=== PATIENT | male | born 1935 | race Caucasian/White ===

== ENCOUNTER 2022-05-23 13:13 | Outpatient (CLI) | payer MEDICARE, SELFPAY ==
[2022-05-23 13:21] VITALS: BP 172/67; PULSE 64; RESP 16; O2SAT 97
[2022-05-23] MEDS: TETRACAINE 0.5% OPHTH 1 DROP EYE-LEFT ×3 (13:24→13:52)
[2022-05-23] MEDS: BRIMONIDINE TARTRATE 0.2% OPHTH 1 DROP EYE-LEFT ×2 (13:26→14:01)
--- NOTE | 2022-05-23 15:11 | P.PCN_ITS ---
Procedure Note Date Seen: 05/23/22 Will [facility] bill your pro fee for this procedure?: Yes Procedure Description: SURGEON: Margo Little MD PREOPERATIVE DIAGNOSIS: Posterior capsular opacity, left eye POSTOPERATIVE DIAGNOSIS: Posterior capsular opacity, left eye PROCEDURE: YAG laser capsulotomy, left eye ANESTHESIA: Topical. ESTIMATED BLOOD LOSS: None PATHOLOGY SPECIMEN: None COMPLICATIONS: None INDICATIONS: See consult note for details. The risks, benefits and alternatives of the procedure were explained to the patient, who elected to proceed and signed informed consent to do so. PROCEDURE: The patient was brought to the pre-holding area where the left eye was identified as the operative eye. I placed my initials above this eye. The patient received 2 sets of 1 drop of 0.5% tetracaine and 1 drop of 1% tropicamide. They also received 1 drop of 0.2% brimonidine. They received 1 drop of 0.5% tetracaine immediately prior to bringing them back for the procedure. The patient was then brought to the procedure room where the left eye was again identified as the operative eye. A YAG Luis Manuel capsulotomy lens was placed on the eye. The laser was administered using a total number of 27 shots with an energy of 2.4 mJ per shot for a total energy of 65 mJ. The patient tolerated the procedure well. DISPOSITION: The patient was taken back to the pre-holding area and given 1 drop of 0.2% brimonidine in the left eye. They were discharged to home in stable condition. The patient was instructed to call me or go to the emergency department with any sudden change, including dramatic loss of vision, severe pain in the eye or eyebrow region, nausea, or vomiting. The patient was instructed to use the 0.2% brimonidine 1 drop 2 times a day in the left eye for 1 week. The patient will follow up in the clinic in 1-2 weeks Surgeon: Margo Little MD
== END 2022-05-23 14:02 | disposition home or self-care (01) ==
PROVIDERS: PCP Family Medicine; Visit Provider Ophthalmology
DX: H26.9 Unspecified cataract (principal)
CPT/HCPCS: 66821; A9270

== ENCOUNTER 2023-03-11 14:05 | Emergency (ER) | payer MEDICARE, SELFPAY ==
[2023-03-11] VITALS (9 sets, daily range): BP systolic 163–183; BP diastolic 75–86; PULSE 43–51; RESP 16; TEMP 36.7; O2SAT 87–99; BMI 34.4
--- NOTE | 2023-03-11 16:45 | ED.GENADULT ---
HPI - General Adult General Chief complaint: Nausea/Vomiting Stated complaint: Nausea, dizziness Time Seen by Provider: 03/11/23 16:44 History of Present Illness HPI narrative: Pt states this morning got out of bed and can barely walk. he is nauseous and dizzy and connot keep food or water down. he normally has a low pulse, states he is an afib patient as well and is on coumadin. Pt has a history of DVT's as well. Pt has been unable to take his meds today. Pt has had vertigo before and didnt know if this was vertigo. He has meclizine but didn't take it. 87-year-old man presenting to the emergency department with complaint of waking and then feeling dizzy except he says that he was not spinning or that the room was spinning. Notes a history of vertigo and this was what he identified as. Is anticoagulated for atrial fibrillation. Not hell sense of palpitations. Is also feeling lightheaded periods the way primarily describes symptoms with multiple avenues questioning as they had to hold on to move the holler to things as he is ambulating. Overall improved from what he was this morning. Called until to nurse line and they said go to the emergency department for evaluation. He thought that he could just be evaluated in the clinic. He is thinking he might be dehydrated because he has vomited some as well. Vomited actually at the desk here on check-in. INR last week he says was 2.7. notes chronic bradycardia Related Data Previous Rx's Medication Instructions Recorded meclizine 25 mg tablet 25 mg PO TID #15 tabs 03/11/23 Allergies Allergy/AdvReac Type Severity Reaction Status Date / Time No Known Drug Allergies Allergy Verified 03/11/23 14:40 PFSH PFS Social History Non-prescribed substance use: denies use Exam Narrative: Exam Narrative: Very pleasant. Talkative. Self-depricating in humor. Head looks to be atraumatic. Sounds a little congested. No facial swelling erythema or tenderness. There is no nystagmus. Movement rotational of his head elicits subjective reproduction of dizziness. Pupils are equal 2 mm briskly reactive. Heart with bradycardic but regular rhythm. Moving all extremities without difficulty. Good strength. Lower extremities with mild pitting edema. Lungs appear to be clear. No sensory loss. Oropharynx is moist. Emesis bag nearby. Const: Vital Signs, click to edit/add: Vital Signs - 24 hr 03/11/23 17:39 03/11/23 17:40 03/11/23 17:56 Pulse Rate 47 L 43 L 47 L Blood Pressure 183/86 H Pulse Oximetry 98 98 97 03/11/23 17:58 03/11/23 18:00 03/11/23 18:15 Pulse Rate 47 L 44 L 45 L Blood Pressure 163/83 H Pulse Oximetry 97 96 99 03/11/23 18:30 03/11/23 18:45 Pulse Rate 51 L 47 L Blood Pressure Pulse Oximetry 96 87 L Documenting provider has reviewed patient's vital signs: yes Course Vital Signs Vital signs: Initial Vital Signs Temperature 98.0 F 03/11/23 14:35 Temperature Source Temporal Artery Scan 03/11/23 14:35 Pulse Rate 47 L 03/11/23 14:35 Pulse Rhythm Regular 03/11/23 14:35 Pulse Strength 3+ Normal 03/11/23 14:35 Respiratory Rate 16 03/11/23 14:35 Blood Pressure 175/75 H 03/11/23 14:35 Blood Pressure Mean 108 H 03/11/23 14:35 Blood Pressure Position Sitting 03/11/23 14:35 Pulse Oximetry 97 03/11/23 14:35 Oxygen Delivery Method Room Air 03/11/23 14:35 Vital Signs Temperature 98.0 F 03/11/23 14:35 Pulse Rate 47 L 03/11/23 14:35 Respiratory Rate 16 03/11/23 14:35 Blood Pressure 175/75 H 03/11/23 14:35 Pulse Oximetry 97 03/11/23 14:35 Oxygen Delivery Method Room Air 03/11/23 14:35 Temperature 98.0 F 03/11/23 14:35 Pulse Rate 47 L 03/11/23 18:45 Respiratory Rate 16 03/11/23 14:35 Blood Pressure 163/83 H 03/11/23 17:58 Pulse Oximetry 87 L 03/11/23 18:45 Oxygen Delivery Method Room Air 03/11/23 14:35 Medical Decision Making MDM Narrative Medical decision making narrative: Differential certainly includes Luca or tachyarrhythmia, ischemic cardiac event, CVA, peripheral vertigo, electrolyte abnormalities, dehydration, low resting tone, anemia. Will evaluate labs in this regard. I do not think head imaging is needed at this time given history. Treatment with Normal saline IV, Zofran and diazepam. Upon Reassessment little sleepy but markedly improved, symptoms essentially gone. Labs reassuring. Remained bradycardic which they noticed typical during time in the emergency department. Due to persistent bradycardia add on of digoxin level upon departure. Their familiar with meclizine. Spouse is used before may have some remaining. See patient discharge plan. Lab Data Lab results reviewed: Yes I reviewed the patient's lab results Labs: Lab Results 03/11/23 03/11/23 03/11/23 Range/Units 17:56 18:08 18:43 Hgb 15.9 (13.5-17.5) gm/dL INR 2.21 H (0.91-1.10) Sodium 134 L (135-149) mmol/L Potassium 4.5 (3.6-5.1) mmol/L Chloride 101 (96-114) mmol/L Carbon Dioxide 27 (20-32) mmol/L BUN 14 (7-30) mg/dL Creatinine 0.9 (0.5-1.5) mg/dL Estimated Creat Clear 54.75 Estimated GFR 83 ml/min Glucose 105 (60-115) mg/dL Calcium 8.9 (8.4-10.6) mg/dL Troponin I 0.02 (0.01-0.04) ng/mL Digoxin < 0.4 L (0.8-2.0) ng/mL Lab Acknowledgement Test Added ECG Data Attestation: I personally reviewed and interpreted this ECG as follows: (Atrial fibrillation rate of 42) Discharge Plan Discharge Clinical Impression: Bradycardia, Peripheral vertigo Patient Disposition: Home w/ Parent or Adult Condition: Improved Additional Instructions: Stay well-hydrated. Take care in transitions. If you have a walker keep a close in the short term. If not too sedating take the meclizine regularly 3 times daily over the next 4 days. Otherwise can use as needed. Might review again with your providers bradycardia and medications that might be relate/contributing. Return for new and focal weakness, worsening discoordination, persistent vomiting. Zofran for nausea/vomiting from [facility] Prescriptions: New meclizine 25 mg tablet 25 mg PO TID Qty: 15 0RF Follow Up/Referrals: Joshua Malik MD [Primary Care Provider] - Stand Alone Forms: MyHealth Info Instructions
[2023-03-11] MEDS: ONDANSETRON 2 MG/ML inj 4 MG IVP (18:00)
[2023-03-11] MEDS: 0.9 % SODIUM CHLORIDE 1000 ml 1,000 ML IV (18:00)
[2023-03-11] MEDS: diazePAM 5 MG/ML inj IV (18:00)
[2023-03-11 18:07] LABS: Hemoglobin* 15.9 gm/dL (13.5-17.5)
[2023-03-11 18:25] LABS: INR 2.21 (0.91-1.10); Prothrombin Time 25.6 Seconds
[2023-03-11 18:32] LABS: Chloride* 101 mmol/L (96-114); Potassium* 4.5 mmol/L (3.6-5.1); Sodium* 134 mmol/L (135-149)
[2023-03-11 18:35] LABS: Blood Urea Nitrogen* 14 mg/dL (7-30); Calcium* 8.9 mg/dL (8.4-10.6); Carbon Dioxide* 27 mmol/L (20-32); Creatinine* 0.9 mg/dL (0.5-1.5); Est. Creatinine Clearance* 54.75; Estimated Glomerular Filt Rate 83 ml/min; Glucose* 105 mg/dL (60-115)
[2023-03-11 19:11] LABS: Troponin I* 0.02 ng/mL (0.01-0.04)
[2023-03-11 20:59] LABS: Digoxin* < 0.4 ng/mL (0.8-2.0)
== END 2023-03-11 19:21 | disposition home or self-care (01) ==
PROVIDERS: Emergency Provider Family Medicine; PCP Family Medicine
DX: R42 Dizziness and giddiness (principal); R00.1 Bradycardia, unspecified
CPT/HCPCS: 36415; 80048; 80162; 84484; 85018; 85610; 93005; 96374; 96375; 99284; J2405; J3360; J7030